=== PATIENT | female | born 1985 | race Caucasian/White ===

== ENCOUNTER 2022-07-16 15:13 | Emergency (ER) | payer BC, OTHER ==
[~2022-07-16] VITALS: Ht 162.6 cm; Wt 62.1 kg
[2022-07-16] MEDS ORDERED: ONDANSETRON HCL/PF 4 MG/2 ML VIAL ONE (15:48)
[2022-07-16] MEDS ORDERED: FENTANYL PF 100MCG/2ML AMPUL ONE ×3 (15:51→16:24)
[2022-07-16] MEDS ORDERED: ONDANSETRON HCL/PF - ER 4 MG/2 ML VIAL IV ONE (16:00)
[2022-07-16] MEDS ORDERED: FENTANYL PF 100MCG/2ML AMPUL IV ONE ×2 (16:00→16:30)
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
[2022-07-16] MEDS ORDERED: PROPOFOL 200 MG/20 ML VIAL IV ONE (17:30)
[2022-07-16] MEDS ORDERED: PROPOFOL 20 ML IV ONE (17:30)
--- NOTE | 2022-07-16 18:07 | NUR ---
RIGHT WRIST PULLED BACK INTO PLACE BY MD MORALES, SPLINT PLACED BY EMT, FOLLOW-UP WRIST X-RAY COMPLETED (2 VIEWS) SHOWING SUCCESSFUL PLACEMENT OF BONES IN WRIST
--- NOTE | 2022-07-16 18:07 | NUR ---
Total 150 mcg propofol IV push given per MD orders prior to right wrist fixation
[2022-07-16] MEDS ORDERED: HYDROMORPHONE 1 MG/1 ML DISP.SYRIN ONE (18:29)
[2022-07-16] MEDS ORDERED: HYDROMORPHONE 1 MG/1 ML DISP.SYRIN IV ONE (18:30)
[2022-07-16] MEDS ORDERED: IBUPROFEN 600 MG TABLET PO ONE (19:30)
[2022-07-16] MEDS ORDERED: HYDROCODONE/APAP 10/325MG TABLET PO ONE (19:30)
[2022-07-16] MEDS ORDERED: HYDROCODONE/APAP 10/325MG TABLET ONE (19:34)
[2022-07-16] MEDS ORDERED: IBUPROFEN 600 MG TABLET ONE (19:34)
[2022-07-16] MEDS ORDERED: IBUP-1955 PO (20:23)
[2022-07-16] MEDS ORDERED: OXYC-128 PO ×2 (20:23→22:02)
--- NOTE | 2022-07-16 20:52 | NUR ---
Patient discharged to home in stable condition. Written and verbal after care instructions given. Patient verbalizes understanding of instruction.
[2022-07-16 21:50] VITALS: BP 131/87
== END 2022-07-16 19:51 | disposition home or self-care (01) ==
LOC: ER 15:17
DX: S52.571A Other intraarticular fracture of lower end of right radius, initial encounter for closed fracture (principal); S20.219A Contusion of unspecified front wall of thorax, initial encounter; S80.02XA Contusion of left knee, initial encounter; F17.200 Nicotine dependence, unspecified, uncomplicated; V49.49XA Driver injured in collision with other motor vehicles in traffic accident, initial encounter; Y93.89 Activity, other specified; Y92.89 Other specified places as the place of occurrence of the external cause; Y99.8 Other external cause status
CPT/HCPCS: 25605; 99152; 71045; 73090; 73560; 73110; 96374; 96375; 96376; 73100; 99285; J2704; J3010 ×3; J2405 ×2; J1170; G0500